=== PATIENT | male | born 1990 | race Hispanic/Latino ===

== ENCOUNTER 2021-01-07 10:34 | Emergency (ER) | payer SELFPAY | END 2021-01-07 14:45 | disposition home or self-care (01) | LOC: EDH 10:34 | DX: S20.221A Contusion of right back wall of thorax, initial encounter (principal); E66.01 Morbid (severe) obesity due to excess calories; Z68.41 Body mass index [BMI] 40.0-44.9, adult; X58.XXXA Exposure to other specified factors, initial encounter; Y93.89 Activity, other specified; Y92.89 Other specified places as the place of occurrence of the external cause; Y99.8 Other external cause status | CPT/HCPCS: 71046 ==

== ENCOUNTER 2025-03-18 11:16 | Emergency (ER) | payer SELFPAY ==
[~2025-03-18] VITALS: Ht 180.3 cm; Wt 136.1 kg
[2025-03-18] MEDS: ketOROlac 30MG VIAL (30MG/ML) IM ONE (13:45)
--- NOTE | 2025-03-18 15:08 | HMCIMG ---
EXAM: CR right foot, 1 View. CLINICAL HISTORY: r/o fx COMPARISON: None provided. FINDINGS: BONES: No acute fracture or aggressive appearing osseous lesion. JOINTS: The joint spaces appear within normal limits. No dislocation. SOFT TISSUES: The soft tissues are unremarkable. IMPRESSION: No acute osseous abnormality. /[place]
[2025-03-18] MEDS ORDERED: KETO10TA2 PO (15:33)
--- NOTE | 2025-03-18 15:33 | ERN ---
General Chief Complaint: FOOT INJURY/PAIN Stated Complaint: CHRONIC RT FOOT PAIN DENIES INJURY Time Seen by MD: 11:28 Time Seen by Midlevel: 11:28 Source: patient History of Present Illness Initial Comments Patient is a 34-year-old male presenting to the emergency department for evaluation of chronic right foot pain that is worse yesterday. Patient denies any recent injury. He does report receiving a steroid injection 1 hour prior to arrival. Denies any direct injury to the area. Allergies: Coded Allergies: No Known Allergies (Unverified Allergy, Unknown, 03/18/25) Past Medical History Past Medical History: No Pertinent History Past Surgical History: None ROS Dictation CONSTITUTIONAL: Negative except for HPI HEAD/FACE: Negative except for HPI EENT: Negative except for HPI RESPIRATORY: Negative except for HPI GASTROINTESTINAL/ABDOMINAL: Negative except for HPI GENITOURINARY: Negative except for HPI MUSCULOSKELETAL: Negative except for HPI INTEGUMENTARY: Negative except for HPI NEUROLOGICAL/PSYCH: Negative except for HPI HEMATOLOGIC/LYMPHATIC: Negative except for HPI All Systems Negative, Except as noted above. 13 point review of systems assessed and all negative except for above. Physical Exam Physical Exam Dictation Vital Signs reviewed General Appearance: Alert, oriented x 3, no acute distress, well developed, nourished. Head and Face: non-traumatic. Eyes: PERRL, pink conjunctivas, eyelid no trauma, anterior chamber with arcus senilis. Ears: Pinnas intact and no signs of trauma or erythema ear canals clear and no discharge TM no erythema Nose: No discharge, no bleeding. Oropharynx: Mouth normal, tongue pink, pharynx clear,no erythema, tonsils no exudates, no abscesses noted, mucous membrane moist Neck: Supple, non-tender, no thyromegaly, no masses, no JVD, no bruits Breast:Deferred Chest:No tenderness, no crepitus, no paradoxical movement, no retractions Lungs:Clear, well-ventilated, symmetric, no rales, no wheezing, no rhonchi, no stridor, good breath sounds bilaterally Heart: Regular rate, regular rhythm, no murmur, no gallops Vascular: no peripheral edema, Abdomen: Soft, positive bowel sounds, nondistended, no guarding, nontender, no rebound, no masses no hepatomegaly, no splenomegaly, no Reaves's sign, no hernias. Rectal: Deferred Genital: Deferred Neurological: Normal speech, motor function intact, sensory function intact Musculoskeletal: Neck nontender, full range of motion, back nontender, full range of motion, Extremities: nontender, full range of motion Skin: Color pink, dry, no turgor, no rash, no lacerations, no abrasions, no contusions. Lymphatic: Deferred MDM MDM: Differential diagnosis: Fracture, contusion, dislocation, chronic pain There are no social concerns with this patient. Prescription drug management Prescriptions will include: Toradol Medical management and examination interpretation discussions were had by me with other qualified healthcare professionals as indicated for the patient's care. ED Course Orders Procedure Category Date Status Time Foot Comp 3+Vws Rt RAD 03/18/25 Resulted 13:41 Ketorolac PHA 03/18/25 Complete Tromethamine 30mg/Ml 14:00 Current Medications Medications (Trade) Dose Ordered Sig/Shivani Route PRN Reason Start Time Stop Time Status Last Admin Dose Admin Ketorolac Tromethamine (toRADol) 30 mg ONCE ONCE IM 03/18/25 14:00 03/18/25 14:01 DC 03/18/25 13:45 Vital Signs Date Time Temp Pulse Resp B/P (MAP) Pulse Ox O2 Delivery O2 Flow Rate FiO2 03/18/25 11:47 97.9 87 16 161/100 93 Room Air* 0 21 03/18/25 11:18 97.9 87 16 161/100 83 Room Air 0 DX & DISP Disposition: Discharge Departure Impression: Primary Impression: Right foot pain Condition: Stable Scripts Ketorolac Tromethamine (Ketorolac Tromethamine) 10 Mg Tablet 1 TAB PO TID for pain for 5 Days, #15 TAB 0 Refills Prov: RANDA BANEGAS 03/18/25 Referrals: SELF,REFERRAL (PCP) I have reviewed the case, and I agree with, Diagnosis and Plan I performed the substantive portion of the visit. I have reviewed and personally made and approve the management plan that is documented in the note by myself or the TONY. I acknowledge for responsibility for the patient's management plan. RANDA BANEGAS Mar 18, 2025 15:33
[2025-03-18 15:44] VITALS: BP 155/90; PULSE 85; RESP 18; TEMP 97.9; O2SAT 83
== END 2025-03-18 15:44 | disposition home or self-care (01) ==
LOC: EDH 11:16
DX: G89.29 Other chronic pain (principal); M79.671 Pain in right foot
CPT/HCPCS: 99283; 73630; 96372; J1885